=== PATIENT | female | born 1975 | race Caucasian/White ===

== ENCOUNTER 2017-06-29 21:39 | Emergency (ER) | payer BC ==
[2017-06-29 21:52] VITALS: BP 126/85; PULSE 82; TEMP 98.3; BMI 30.5
--- NOTE | 2017-06-29 22:15 | PDOC ---
History of Present Illness - General Chief Complaint: Shortness of Breath Stated Complaint: FEELS WINDED Time Seen by Provider: 06/29/17 21:43 - History of Present Illness Initial Comments: This 41-year-old woman, with history of asthma as a child but none in recent years and history of palpitations several years ago for which she was seen by regional office coordinator but had no treatment, presents with 1 day history of sensation that she occasionally needs to take an extra breath. She states that this sensation recurred any time but particularly when she was talking or walking. She had no chest pain or rapid/irregular pulse. She has had no recent upper respiratory infection, fever/chills or any other acute symptoms. She works as a teacher but does not feel particularly stressed at this time other than it being the start of school year. She has had no recent increase in caffeine consumption (drinks 1 cup of coffee a day). Past History - Past Medical History Allergies/Adverse Reactions: Allergies Allergy/AdvReac Type Severity Reaction Status Date / Time Iodine and Iodide Containing Allergy Intermediate Rash Verified 06/29/17 21:40 Produc shellfish derived Allergy Intermediate HIVES,ABD Verified 06/29/17 21:40 PAIN,VOMITING Home Medications: Ambulatory Orders Levothyroxine [Synthroid -] 100 mcg PO DAILY 10/24/14 Lorcaserin HCl [Belviq] 10 mg PO DAILY 06/29/17 Anemia: Yes (IN THE PAST) Asthma: Yes ( A CHILD) Cancer: No Cardiac Disorders: No CVA: No COPD: No CHF: No Dementia: No Diabetes: Yes (GESTATIONAL) GI Disorders: No Disorders: No HTN: No Hypercholesterolemia: No Liver Disease: No Seizures: No Thyroid Disease: Yes - Surgical History Abdominal Surgery: No Appendectomy: No Cardiac Surgery: No Cholecystectomy: No Lung Surgery: No Neurologic Surgery: No Orthopedic Surgery: No - Suicide/Smoking/Psychosocial Hx Smoking History: Never smoked Have you smoked in the past 12 months: No Information on smoking cessation initiated: No Hx Alcohol Use: Yes (WEEKENDS) Drug/Substance Use Hx: No Substance Use Type: Alcohol Hx Substance Use Treatment: No Review of Systems - Review of Systems Able to Perform ROS?: Yes Comments:: 12 point review of systems is negative except for what is noted in the history of present illness *Physical Exam - Vital Signs Last Vital Signs Temp Pulse Resp BP Pulse Ox 98.3 F 82 18 126/85 99 06/29/17 21:44 06/29/17 21:44 06/29/17 21:44 06/29/17 21:44 06/29/17 21:44 - Physical Exam Comments: GENERAL: Adult female, alert and oriented 3, in no acute distress. HEAD: Normal with no signs of trauma. EYES: PERRLA, EOMI, sclera anicteric, conjunctiva clear. ENT: Ears normal, nares patent, oropharynx clear without exudates. Dry mucous membranes. NECK: Normal range of motion, supple without lymphadenopathy, JVD, or masses. LUNGS: Breath sounds equal, clear to auscultation bilaterally. No wheezes, and no crackles. HEART:Regular rate and rhythm, normal S1 and S2 without murmur, rub or gallop. ABDOMEN:.normal bowel sounds No guarding,tenderness or rebound.No masses No distention. EXTREMITIES: Normal range of motion, no edema. No clubbing or cyanosis. No erythema, or tenderness. NEUROLOGICAL: Cranial nerves II through XII grossly intact. Normal speech. No focal neurological deficits. MUSCULOSKELETAL: Back non-tender to palpation, no CVA tenderness SKIN: Warm, Dry, normal turgor, no rashes or lesions noted. 12-lead electrocardiogram shows sinus bradycardia at 54 bpm; axis, intervals and wave forms are all normal. No evidence of acute ST or T-wave abnormalities. No evidence of extra beats or other arrhythmia. ED Treatment Course - LABORATORY CBC & Chemistry Diagram: 06/29/17 22:50 06/29/17 22:50 Progress Note - Progress Note Progress Note: Laboratory evaluation notable only for mild hypokalemia (3.3); this was corrected with 40 mEq of K-Dur by mouth. All other laboratory values were within normal limits, including troponin *DC/Admit/Observation/Transfer Diagnosis at time of Disposition: History of dyspnea - Discharge Dispostion Disposition: HOME Condition at time of disposition: Stable - Patient Instructions Printed Discharge Instructions: High-Potassium Diet Additional Instructions: Drink plenty of fluids; avoid excessive caffeine ingestion Include plenty of fruits/vegetables in your diet Return to ER if you have persistent shortness of breath or experience palpitations Follow-up with your general doctor on Thursday, July 01 as scheduled - Post Discharge Activity Work/School Note: Back to Work
[2017-06-29 23:09] LABS: BASOPHIL 1.1 % (0-2.0); EOSINOPHIL 1.4 % (0-4.5); MCH 31.2 pg (25.7-33.7); MCHC 34.9 g/dl (32.0-36.0); MEAN CELL VOLUME 89.3 fl (80-96); MEAN PLT VOLUME 8.2 fl (7.5-11.1); NEUTROPHILS 56.2 % (42.8-82.8); PLATELET COUNT 217 K/MM3 (134-434); WHITE BLOOD COUNT 7.6 K/mm3 (4.0-10.8)
[2017-06-29 23:29] LABS: ALBUMIN 4.1 g/dl (3.5-5.0); ALK PHOS 60 U/L (32-92); ANION GAP 7 (8-16); BILIRUBIN,TOTAL 0.2 mg/dl (0.2-1.0); CALCIUM 9.3 mg/dl (8.4-10.2); CO2 28 mmol/L (22-28); CREATININE 0.7 mg/dl (0.6-1.3); GLUCOSE,RANDOM 82 mg/dl (74-106); SGOT/AST 21 U/L (10-42); SGPT/ALT 20 U/L (10-40)
[2017-06-29 23:30] LABS: CPK 110 IU/L (26-192)
[2017-06-29] MEDS ORDERED: POTASSIUM CHLORIDE TABS 20 MEQ TABLET.ER (FP) PO ONE ×2 (23:39→23:52)
[2017-06-29 23:49] LABS: TROPONIN I (DFP) < 0.03 ng/ml (0.03-0.50)
--- NOTE | 2017-06-30 22:11 | EKG ---
Test Reason : Blood Pressure : / mmHG Vent. Rate : 054 BPM Atrial Rate : 054 BPM P-R Int : 148 ms QRS Dur : 084 ms QT Int : 442 ms P-R-T Axes : 033 053 043 degrees QTc Int : 419 ms POOR DATA QUALITY, INTERPRETATION MAY BE ADVERSELY AFFECTED BASELINE ARTIFACTS SINUS BRADYCARDIA NO PREVIOUS ECGS AVAILABLE REPEAT EKG IF CLINICALLY INDICATED Confirmed by DENIA SAEED MD ([id number]) on 06/30/2017 10:11:00 PM Referred By: JEAN-PAUL Confirmed By:DENIA SAEED MD
== END 2017-06-30 00:06 | disposition home or self-care (01) ==
LOC: FER 21:39
DX: R06.00 Dyspnea, unspecified (principal); J45.909 Unspecified asthma, uncomplicated; E07.9 Disorder of thyroid, unspecified
CPT/HCPCS: 36415; 80053; 84484; 85025; 93005; 99282-25